=== PATIENT | male | born 1980 | race Caucasian/White ===

== ENCOUNTER 2023-07-29 14:28 | Emergency (ER) | payer OTHER, SELFPAY ==
--- NOTE | ~2023-07-29 | XR_ITS ---
XR ankle RT min 3V 07/29/2023 14:45 Indication: Right ankle pain Procedure: 4 views right ankle Comparison: No prior studies for comparison. Findings: No fracture, subluxation or dislocation. There is anatomic alignment. Impression: 1: No acute bone or joint abnormality. Reviewed, dictated and finalized at location L. Impression: 1: No acute bone or joint abnormality.
[2023-07-29 14:30] VITALS: BP 147/90; PULSE 98; RESP 16; TEMP 36.8; O2SAT 100
--- NOTE | 2023-07-29 15:31 | ED_ITS ---
HPI - Extremity Injury (Lower) General Chief Complaint: Extremity Injury, Lower Stated Complaint: R ankle injury Time Seen by Provider: 07/29/23 14:35 History of Present Illness HPI Narrative: Patient tripped and rolled his right ankle, he was able to walk on it but it does hurt, he has rolled his ankles before. Related Data Allergies Allergy/AdvReac Type Severity Reaction Status Date / Time No Known Allergies Allergy Verified 07/29/23 14:42 Review of Systems Review of Systems: M/S: Right ankle pain. SKIN: No rash. NEURO: [No focal numbness or weakness] [facility] Family History Family History (Updated 07/04/11 @ 14:49 by DOCTOR UNKNOWN) Other Family history of malignant neoplasm Social History Social History Alcohol intake: current Exam Narrative: EXAMINATION OF ORGAN SYSTEMS/BODY AREAS: Constitutional: Vital signs per nursing GENERAL:[No acute distress, non-toxic appearing.] HEAD: Normal with no signs of head trauma. EYES: EOMI, conjunctiva normal ENT: Hearing grossly intact LUNGS: Nonlabored breathing. HEART: [Regular rate and rhythm] ABD: [Soft], [tender to palpation] EXT: Normal range of motion; mild tenderness to lateral right ankle without any obvious deformity, DP pulse intact SKIN: [No rashes or lesions.] NEURO: [Alert and oriented x 3. No gross focal sensory or strength deficits.] PSYCH: Normal affect Course Vital Signs Vital signs: Vital Signs Temperature 98.2 F 07/29/23 14:30 Pulse Rate 98 07/29/23 14:30 Respiratory Rate 16 07/29/23 14:30 Blood Pressure 147/90 H 07/29/23 14:30 Pulse Oximetry 100 07/29/23 14:30 Oxygen Delivery Room Air 07/29/23 14:30 Temperature 98.2 F 07/29/23 14:30 Pulse Rate 98 07/29/23 14:30 Respiratory Rate 16 07/29/23 14:30 Blood Pressure 147/90 H 07/29/23 14:30 Pulse Oximetry 100 07/29/23 14:30 Oxygen Delivery Room Air 07/29/23 14:30 MDM - Extremity Injury (Lower) MDM Narrative Medical decision making narrative: 42-year-old male presents with right ankle pain after rolling it, he is well- appearing here, on exam neurovascularly intact, no obvious deformity, x-ray without acute fracture, dislocation, stable for discharge at this time. Discharge Plan Discharge Clinical Impression: Ankle sprain and strain Patient Disposition: Home, Self-Care Condition: Stable Instructions: Antibiotic Form, Ankle Sprain (ED) Prescriptions: New acetaminophen [Tylenol Extra Strength] 500 mg tablet 1,000 mg PO Q6H PRN (Reason: pain) Qty: 50 0RF ibuprofen 600 mg tablet 600 mg PO TID PRN (Reason: fever or pain) Qty: 30 0RF Follow-up/Referrals: Rd Conway JR, MD [Physician] - 2 Days PHYSICIAN,METER ATTENDANT [Primary Care Provider] -
== END 2023-07-29 15:36 | disposition home or self-care (01) ==
PROVIDERS: Emergency Provider Emergency Medicine
DX: S93.401A Sprain of unspecified ligament of right ankle, initial encounter (principal); S96.911A Strain of unspecified muscle and tendon at ankle and foot level, right foot, initial encounter; W01.0XXA Fall on same level from slipping, tripping and stumbling without subsequent striking against object, initial encounter
CPT/HCPCS: 73610; 99283

== ENCOUNTER 2025-01-18 17:54 | Emergency (ER) | payer OTHER, SELFPAY ==
--- NOTE | ~2025-01-18 | XR_ITS ---
XR hand LT min 3V Ordering provider: Joanie Duffy PA-C History: . truck fell on hand . Comparison: None. FINDINGS: BONES: No acute fracture or dislocation. JOINT SPACES: Narrowing of the distal interphalangeal joints. SOFT TISSUES: Unremarkable. IMPRESSION: No acute osseous abnormality left hand. Polyarticular osteoarthritic changes. Reviewed, dictated and finalized at location A.
--- OUTSIDE RECORDS SUMMARY | 2025-01-18 17:56 | XMS_ITS | Clinical Summary ---
Author Organization [facility] Address [facility] [place] [address] Care Team Providers Care Street Inspector Name Role Phone None, Provider MD Primary Care Provider Unavaila ble Allergies No known active allergies Medications ibuprofen 800 MG tablet Take 1 tablet (800 mg total) by mouth every 8 (eight) hours as needed for Pain. 30 tablet 0 Active ciprofloxacin 0.3 % ophthalmic solution Administer 2 drop in the left eye four times daily for 5 days. 5 mL 2 Active Social History Tobacco Use Types Packs/Day Years Used Date Smoking Tobacco: Every Day Cigarettes Smokeless Tobacco: Never Tobacco Cessation:Ready to Q uit: No; Counseling Given: Yes Alcohol Use Standard Drinks/Week Comments Yes 11.7 (1 standard drink = 0.6 oz pure alcohol) Sex and Gender Information Value Date Recorded Sex Assigned at Not on file Legal Sex Male 5:48 PM CDT Gender Identity Not on file Sexual Orientation Not on file Last Filed Vital Signs Vital Sign Reading Time Taken Comments Blood Pressure 150/100 04/15/2022 11:13 AM CDT Pulse 92 04/15/2022 11:13 AM CDT Temperature 37 C (98.6 F) 04/15/2022 11:13 AM CDT Respiratory Rate 18 04/15/2022 11:13 AM CDT Oxygen Saturation 97% 04/15/2022 11:13 AM CDT Inhaled Oxygen Concentration - - Weight 77.1 kg (170 lb) 04/15/2022 11:13 AM CDT Height 175.3 cm (5' 9 ) 04/15/2022 11:13 AM CDT Body Mass Index 25.1 04/15/2022 11:13 AM CDT Plan of Treatment Health Maintenance Due Date Last Done Comments Colorectal Cancer Screening Colonoscopy (10 Years) 1979 Annual Physical 1982 Hepatitis C 1997 DTaP, Tdap and Td Vaccines ( 1 - Tdap) 1998 Hepatitis B Vaccines (1 of 3 - 19+ 3-dose series) 1998 COVID-19 Vaccine (2023-2 5 season) 2024 HPV Vaccines Aged Out No longer eligi ble based on patient's age to complete this topic Meningococcal B Vaccine Aged Out No l onger eligible based on patient's age to complete this topic Meningococcal Vaccine Aged Out No tyrell john eligible based on patient's age to complete this topic Pneumococcal Vaccine: Pediat rics (0 to 5 Years) and At-Risk Patients (6 to 49 Years) Aged Out No longer eligible b ased on patient's age to complete this topic RSV Immunizations Under 20 Months Aged Out No longer eligible based on patient's age to complete this topic Care Teams Street Inspector Relationship Specialty Start Date End Date None, Provider, PCP - General 11/23/19
[2025-01-18 17:57] VITALS: BP 103/60; PULSE 100; RESP 18; TEMP 36.6; O2SAT 100
--- NOTE | 2025-01-18 18:02 | ED.UPPEXIN ---
HPI - Extremity Injury (Upper) General Chief Complaint: Extremity Injury, Upper Stated Complaint: truck fell on hand Focused HPI: 44-year-old male presents to emergency department for left hand pain. Patient states a truck fell on his hand. The patient is refusing to provide further history surrounding the event. He states the pain is mostly to the 2nd and 3rd MCP and he has a laceration to the palm of his hand. Last Tdap unknown. He is cursing at myself and nursing staff. GENERAL: Writhing in pain in wheelchair HEAD: Normocephalic, atraumatic. CHEST: Clear to auscultation. ?No respiratory distress. EXT: LUE: Tenderness to the distal 2nd and 3rd metacarpals with edema and mild erythema over the dorsum of the 2nd and 3rd MCPs. Patient is able to wiggle fingers. Small superficial laceration noted to the palm of the hand with no active bleeding. Cap refill less than 2. Sensation intact throughout. Radial pulse 2 +. Compartments soft HEART: Regular rate and rhythm.? NEURO: ?Alert and oriented x3. Patient screened in triage and initial orders placed.? ?Additional care and disposition to be based upon?diagnostic testing and treatment. Related Data Allergies Allergy/AdvReac Type Severity Reaction Status Date / Time No Known Allergies Allergy Verified 07/29/23 14:42 [facility] Family History Family History (Updated 07/04/11 @ 14:49 by DOCTOR UNKNOWN) Other Family history of malignant neoplasm Social History Social History Alcohol intake: current Course Vital Signs Vital signs: Vital Signs Temperature 97.8 F 01/18/25 17:57 Pulse Rate 100 01/18/25 17:57 Respiratory Rate 18 01/18/25 17:57 Blood Pressure 103/60 01/18/25 17:57 Pulse Oximetry 100 01/18/25 17:57 Oxygen Delivery Room Air 01/18/25 17:57 Temperature 97.8 F 01/18/25 17:57 Pulse Rate 100 01/18/25 17:57 Respiratory Rate 18 01/18/25 17:57 Blood Pressure 103/60 01/18/25 17:57 Pulse Oximetry 100 01/18/25 17:57 Oxygen Delivery Room Air 01/18/25 17:57 Discharge Plan Discharge Clinical Impression: Hand pain, left Patient Disposition: Elopement After Seen by Prov Patient Language: Bermudian Prescriptions: No Action acetaminophen [Tylenol Extra Strength] 500 mg tablet 1,000 mg PO Q6H PRN (Reason: pain) Qty: 50 0RF ibuprofen 600 mg tablet 600 mg PO TID PRN (Reason: fever or pain) Qty: 30 0RF Follow-up/Referrals: PHYSICIAN,MEDICAL BILLER [Primary Care Provider] -
[2025-01-18] MEDS: TETANUS,DIPHTHERIA,AC PERTUSSIS ADULT (0.5 ML) BOOSTRIX IM (18:36)
[2025-01-18] MEDS: HYDROcodone/acetaminophen (*CRX) 5-325 MG TABLET 1 TAB PO (18:37)
--- NOTE | 2025-01-18 20:45 | PC.NURSE ---
Pt approached triage desk stating that he was leaving due to wait times and asked how he could find out about his scan results. Pt provided with patient portal information. Pt advised to be seen at nearest ed for new or worsening symptoms. Pt ambulated to ED exit with steady gait and no signs for concern at this time.
--- NOTE | 2025-01-18 21:48 | PC.NURSE ---
Pt approached triage desk stating that he was leaving due to wait times and asked how he would be able to find out his scan results. Pt given information to set up patient portal. Pt advised to be seen at nearest ED for warranting signs and symptoms. Pt ambulated to ED exit with steady gait and no signs for concern at this time.
--- OUTSIDE RECORDS SUMMARY | 2025-01-18 23:04 | XMS_ITS | Clinical Summary ---
Author Organization [facility] Address [facility] [place] [address] Care Team Providers Care Spinneret Person Name Role Phone None, Provider MD Primary [...] age to complete this topic Care Teams Spinneret Person Relationship Specialty Start Date End Date None, Provider, PCP - General 11/23/19
== END 2025-01-18 23:27 | disposition left against medical advice (07) ==
LOC: ANHED 23:02
PROVIDERS: Emergency Provider Physician Assistant
DX: S69.92XA Unspecified injury of left wrist, hand and finger(s), initial encounter (principal); Z23 Encounter for immunization; W20.8XXA Other cause of strike by thrown, projected or falling object, initial encounter
CPT/HCPCS: 73130; 90471; 90715; 99199; 99283; A9270